=== PATIENT | female | born 1950 | race Caucasian/White ===

== ENCOUNTER → 2016-07-29 | Outpatient (CLI) | payer BC ==
--- NOTE | 2016-07-29 10:19 | MM ---
Reason for exam: history of breast cancer, conservation therapy. Last mammogram was performed 1 year ago. History: Patient is postmenopausal and has history of bilateral breast cancer at age 61. Malignant right breast needle localzation of both breasts, December 30, 2011. Malignant US RT VAD breast biopsy of the right breast, December 16, 2011. Malignant US RT VAD breast biopsy of the right breast, December 16, 2011. Benign core biopsy of the right breast, July 01, 1997. Cyst aspiration of the left breast. Cyst aspiration of the right breast. Excisional biopsy of the left breast. Taking antineoplastic for 4 years beginning at age 61. Physical Findings: Nurse did not find any significant physical abnormalities on exam. MG Diagnostic Mammo w CAD RAJENDRA Bilateral CC and MLO view(s) were taken. XCCL view(s) were taken of the right breast. Prior study comparison: July 29, 2015, bilateral MG 3d diag mammo w/cad RAJENDRA. July 23, 2014, bilateral MG diagnostic mammo w CAD RAJENDRA. July 17, 2013, CAD bilateral diagnostic mammogram. The breast tissue is heterogeneously dense. This may lower the sensitivity of mammography. Finding #1: Architectural distortion in the upper outer quadrant, posterior position of the right breast. Finding #2: There are typically benign round calcifications in both breasts. Previous mammotome biopsy in the right breast. There is no discrete abnormality. These results were verbally communicated with the patient and result sheet given to the patient on 07/29/16. ASSESSMENT: Benign, BI-RAD 2 RECOMMENDATION: Follow-up diagnostic mammogram of both breasts in 1 year.
== END | disposition home or self-care (01) ==
LOC: RADMAMWWP 09:30
PROVIDERS: ATTEND Radiology Diagnostic Radiology
DX: C50.911 Malignant neoplasm of unspecified site of right female breast (principal); Z79.899 Other long term (current) drug therapy

== ENCOUNTER → 2017-08-01 | Outpatient (CLI) | payer MEDICARE ==
--- NOTE | 2017-08-01 11:04 | MM ---
Reason for exam: additional evaluation requested from prior study. Last mammogram was performed 1 year ago. History: Patient is postmenopausal and has history of bilateral breast cancer at age 61. Malignant right breast needle localzation of both breasts, December 30, 2011. Malignant US RT VAD breast biopsy of the right breast, December 16, 2011. Malignant US RT VAD breast biopsy of the right breast, December 16, 2011. Benign core biopsy of the right breast, July 01, 1997. Cyst aspiration of the left breast. Cyst aspiration of the right breast. Excisional biopsy of the left breast. Taking antineoplastic for 4 years beginning at age 61. Physical Findings: Nurse did not find any significant physical abnormalities on exam. MG 3D Diag Mammo W/Cad RAJENDRA Bilateral CC and MLO view(s) were taken. Prior study comparison: July 29, 2016, bilateral MG diagnostic mammo w CAD RAJENDRA. July 29, 2015, bilateral MG 3d diag mammo w/cad RAJENDRA. The breast tissue is heterogeneously dense. This may lower the sensitivity of mammography. Finding: There are clips and architectural distortion in the upper outer quadrant, posterior position of the right breast consistent with known lumpectomy. Previous mammotome biopsy in the right breast. There is no discrete abnormality. These results were verbally communicated with the patient and result sheet given to the patient on 08/01/17. ASSESSMENT: Benign, BI-RAD 2 RECOMMENDATION: Follow-up diagnostic mammogram of both breasts in 1 year.
== END | disposition home or self-care (01) ==
LOC: RADMAMWWP 09:28
PROVIDERS: ATTEND Radiology Diagnostic Radiology
DX: C50.911 Malignant neoplasm of unspecified site of right female breast (principal)
CPT/HCPCS: 77066; G0279

== ENCOUNTER → 2018-01-20 | Outpatient (CLI) | payer MEDICARE ==
--- NOTE | 2018-01-20 14:47 | XR ---
EXAMINATION TYPE: XR knee complete LT DATE OF EXAM: 01/20/2018 COMPARISON: None HISTORY: Pain, knee injury, fall TECHNIQUE: Three-view left knee FINDINGS: Joint spaces are preserved. No joint effusion is evident. No acute fractures or dislocation s are evident. Patella appears intact. Follow-up exams can be performed 7-10 days continued pain. IMPRESSION: 1. Normal three-view left knee
== END | disposition home or self-care (01) ==
LOC: RADXRYALE 14:02
PROVIDERS: ATTEND Physician Assistant Medical
DX: M25.562 Pain in left knee (principal); R22.42 Localized swelling, mass and lump, left lower limb

== ENCOUNTER → 2018-08-02 | Outpatient (CLI) | payer MEDICARE ==
[2018-08-02 08:19] VITALS: BP 123/70; RESP 18; TEMP 98.1; BMI 23.5
[2018-08-02 08:35] VITALS: PULSE 55
--- NOTE | 2018-08-02 09:04 | P.HPOB ---
History of Present Illness H&P Date: 08/02/18 Chief Complaint: The patient is here for her routine gynecologic exam and ma mmogram. This is a 67-year-old with an LMP of 2003. The patient is without gynecologic complaints and denies any postmenopausal bleeding. Review of Systems She is getting about 6 pounds over the last 3 years. She denies respiratory or G.I. problems. Cardiac: occasional palpitations associated with anxiety. She is currently undergoing a workup for this and has an appointment with Dr. Haynes, the hot metal mixer operator helper. She denies maltreatment. She has fallen twice over the last year without significant injury. : she has occasional small leakage which is not a big problem for her. Past Medical History Past Medical History: Cancer, Hypertension, Thyroid Disorder Additional Past Medical History / Comment(s): MIGRAINE, Right CANCER BREAST status post lumpectomy and radiation in 2011. Migraine. Osteoporosis. 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 History of Any Multi-Drug Resistant Organisms: None Reported Past Surgical History: Breast Surgery, Tonsillectomy Additional Past Surgical History / Comment(s): PLATE RIGHT FEMUR, FACIAL RECONSTRUCTION. Breast lumpectomy. Breast biopsies. Left oophorectomy. Past Psychological History: No Psychological Hx Reported Smoking Status: Never smoker Past Alcohol Use History: None Reported Past Drug Use History: None Reported Additional History: She has been since 1973. She is retired. - Past Family History Mother Family Medical History: No Reported History Additional Family Medical History / Comment(s): Grandmother had some type of gynecologic cancer in her 80s and she believes it was uterine cancer. Medications and Allergies Home Medications Medication Instructions Recorded Confirmed Type Amitriptyline HCl [Elavil] 25 mg PO HS 10/10/13 10/10/13 History Clarithromycin [Biaxin] 250 mg PO Q12HR #10 tab 10/10/13 Rx Hydrocodone/Acetaminophen [Vicodin 1 tab PO Q6HR PRN 10/10/13 10/10/13 History 5-300 mg Tablet] Levothyroxine Sodium [Synthroid] 112 mcg PO DAILY 10/10/13 10/10/13 History Metoprolol Tartrate [Lopressor] 25 mg PO BID 10/10/13 10/10/13 History Tamoxifen [Nolvadex] 20 mg PO DAILY 10/10/13 10/10/13 History Allergies Allergy/AdvReac Type Severity Reaction Status Date / Time ampicillin Allergy Unknown Verified 10/10/13 13:43 ciprofloxacin [From Cipro] Allergy Unknown Verified 10/10/13 13:43 ciprofloxacin HCl Allergy Unknown Verified 10/10/13 13:43 [From Cipro] Iodinated Contrast- Oral and Allergy Unknown Verified 10/10/13 13:43 IV Dye [Iodinated Contrast Media - IV Dye] Sulfa (Sulfonamide Allergy Unknown Verified 10/10/13 13:43 Antibiotics) Exam Vital Signs Temp Pulse Resp BP Pulse Ox 08/02/18 08:20 98.1 F 55 L 18 123/70 99 08/02/18 08:17 98.1 F 18 123/70 Intake and Output 08/01/18 08/02/18 08/02/18 22:59 06:59 14:59 Other: Weight 68.039 kg Height 5'7", weight 150 pounds, BMI 24. This is a well-developed well-nourished white female who is alert and oriented times 3 in no acute distress. HEENT: Within normal limits. NECK: Supple without mass or thyromegaly. CHEST AND LUNGS: Clear to auscultation. HEART: Regular rate and rhythm. BREASTS: Are without mass or discharge. There are bilateral dimpled areas. There is a dimpled area in the right breast at approximately the 10 o'clock position and in the left breast at the 6 o'clock position. These are the areas of her previous lumpectomy and biopsy sites. AXILLARY EXAM: Negative for adenopathy. BACK: Negative for CVA tenderness. ABDOMEN: Soft, nontender, without palpable masses. PELVIC EXAM: Normal external genitalia with mild to moderate atrophy. Cervix and vagina appear normal with mild to moderate atrophy. There is no unusual discharge. There is no evidence of prolapse. The uterus is slightly retroverted, nongravid size and nontender. There is a palpable left adnexal mass adjacent to the uterus which is approximately 3 cm in size. There are no other palpable adnexal masses. The pelvis is nontender with bimanual examination. RECTAL EXAM: rectovaginal exam is negative for mass or tenderness and is negative for occult blood. I was unable to palpate the left adnexal mass with rectovaginal exam. EXTREMITIES: Nontender. IMPRESSION: 1. 67-year-old menopausal female with left pelvic adnexal mass. Differential diagnosis will include uterine fibroid, palpable ovary, ovarian neoplasm, or atypical retroverted uterus. 2. History of osteoporosis managed by her semiautomatic stitcher operator. 3. History of right breast cancer with no evidence of recurrence. PLAN: 1. Pap smear was performed. 2. Self breast awareness was discussed with the patient. 3. Diagnostic bilateral mammogram will be done today. 4. The patient will be scheduled for a pelvic ultrasound. The order slip was given to the patient for this. 5. I have recommended screening colonoscopy since she has never had this done. We also discussed Cologard testing if she does not want to do colonoscopy screening. She will further discuss your options with her primary caregiver. 6.Osteoporosis management was discussed. I have stressed the importance of adequate calcium, vitamin D and regular exercise. Recommended amounts of calcium and vitamin D were also discussed. I have also recommended that she reconsider medications for osteoporosis. We have discussed many of the pros and cons of the medications available. She states she will reconsider treatment and will further discuss this with her semiautomatic stitcher operator as she is done in the past. 7. She does not get flu shots in the fall. I have asked her to reconsider this. 8. She will return in one year.
--- NOTE | 2018-08-02 09:14 | MM ---
Reason for exam: additional evaluation requested from prior study. Last mammogram was performed 1 year ago. History: Patient is postmenopausal and has history of bilateral breast cancer at age 61. Malignant right breast needle localzation of both breasts, December 30, 2011. Malignant US RT VAD breast biopsy of the right breast, December 16, 2011. Malignant US RT VAD breast biopsy of the right breast, December 16, 2011. Benign core biopsy of the right breast, July 01, 1997. Cyst aspiration of the left breast. Cyst aspiration of the right breast. Excisional biopsy of the left breast. Taking antineoplastic for 4 years beginning at age 61. Physical Findings: Dr. Duong did breast exam. MG 3D Diag Mammo W/Cad RAJENDRA Bilateral CC and MLO view(s) were taken. Prior study comparison: August 01, 2017, bilateral MG 3d diag mammo w/cad RAJENDRA. July 29, 2016, bilateral MG diagnostic mammo w CAD RAJENDRA. The breast tissue is heterogeneously dense. This may lower the sensitivity of mammography. Previous mammotome biopsy in the right breast. Post surgical and post therapy changes in the right breast. No persisting abnormality on 3D images. No significant new findings when compared with previous films. These results were verbally communicated with the patient and result sheet given to the patient on 08/02/18. ASSESSMENT: Benign, BI-RAD 2 RECOMMENDATION: Follow-up diagnostic mammogram of both breasts in 1 year.
--- NOTE | 2018-08-02 11:09 | US ---
EXAMINATION TYPE: US pelvis complete transvag DATE OF EXAM: 08/02/2018 COMPARISON: None CLINICAL HISTORY: 67-year-old female R68.89 Abn Pelvic Exam/R19.09 L Pelvic Mass. Pt states possible left adnexal mass felt on Dr's examination, left ovary surgically absent TECHNIQUE: Transabdominal sonographic images of the pelvis were acquired. Transvaginal sonographic images were medically necessary to better assess the following anatomy: Uterus and ovaries Findings: EXAM MEASUREMENTS: Uterus: 6.9 x 3.8 x 4.1 cm Endometrial Stripe: 0.8 cm Right Ovary: 2.0 x 1.6 x 1.6 cm 1. Uterus: Retroverted with a cervical nabothian cyst within cervix 2. Endometrium: Heterogeneous intervertebral cystic change or fluid within the uterine cavity. Of th e endometrial stripe is borderline thickened for foreign asymptomatic postmenopausal female. 3. Right Ovary: wnl 4. Left Ovary: Surgically absent 5. Bilateral Adnexa: wnl, bowel peristalsis visualized bilaterally 6. Posterior cul-de-sac: wnl IMPRESSION: 1. Retroverted uterus. The endometrial stripe is borderline to mildly thickened at 8 mm (for a patien t without postmenopausal bleeding) and heterogeneous in appearance. There is either cystic change or small amount of fluid within the uterine cavity. Endometrial hyperplasia is possible. Careful clinica l correlation recommended. Follow-up as indicated as thickening can be seen with endometrial polyps a nd endometrial carcinoma as well. 2. Left ovary surgically absent. No evident adnexal mass or other abnormality by ultrasound.
== END ==
LOC: WWCWWP 07:49
PROVIDERS: ATTEND Obstetrics & Gynecology
DX: Z08 Encounter for follow-up examination after completed treatment for malignant neoplasm (principal); Z85.3 Personal history of malignant neoplasm of breast; R93.89 Abnormal findings on diagnostic imaging of other specified body structures
CPT/HCPCS: 77066; 76856; 76830; G0279; 77062

== ENCOUNTER → 2018-08-23 | Day surgery (SDC) | payer MEDICARE ==
[2018-08-23 12:18] VITALS: PULSE 54; RESP 20; TEMP 97.1; BMI 23.1
--- NOTE | 2018-08-23 13:12 | P.PCN ---
Date of Procedure: 08/23/18 Preoperative Diagnosis: Postmenopausal endometrial thickening. Postoperative Diagnosis: Same Procedure(s) Performed: Endometrial biopsy Anesthesia: none Surgeon: Rickey Duong Estimated Blood Loss (ml): 0 Pathology: other (Endometrial tissue) Condition: stable Disposition: same day Indications for Procedure: This is a 67-year-old menopausal female who had a pelvic ultrasound done which showed an endometrial thickness of 8 mm. This is considered thickened for a menopausal woman. She denies any postmenopausal bleeding. Operative Findings: The uterus is slightly retroverted. The cervix and vagina appear normal. The uterus sounded to 7 cm. Scant amount tissue is obtained with endometrial biopsy. Description of Procedure: The endometrial biopsy procedure was described to the patient. All of her questions were answered. The patient was placed in the lithotomy position. Bimanual examination was performed. The uterus is mid-positioned, slightly retroverted, and is nongravid size. The speculum was inserted and the cervix and vagina were prepped with 5% acetic acid solution(iodine allergy). In Allys Clamp was placed on the anterior lip of the cervix. The 3mm endometrial biopsy curette was placed to the fundus without difficulty. The uterus sounded to 7 cm. A [id number] rotating motion was used and a scant amount of tissue was obtained and sent for pathological examination. The procedure was repeated and again a scant amount of tissue was obtained. The patient tolerated the procedure well. There were no complications. The post procedure vitals are as follows: blood pressure 131/61. pulse 65. Post procedure instructions were given to the patient.
--- NOTE | 2018-08-29 09:14 | P.PN ---
Progress Note - Text Progress Note Date: 08/29/18 OUTPATIENT FOLLOW-UP NOTE TEST(S)/RESULTS: endometrial biopsy pathology from 08/23/2018 showed benign inactive endometrium. METHOD OF NOTIFICATION: the patient was notified by phone. PATIENT COMMENTS: the patient is happy to hear this results. She states she had no problems after the procedure. DIAGNOSIS: benign endometrial biopsy pathology done for thickened endometrium by ultrasound. DISCUSSION: the patient was instructed to call she has any postmenopausal vaginal bleeding. PLAN: She was advised to return in one year for her annual well woman exam.
== END ==
LOC: WWCWWP 11:57
PROVIDERS: ATTEND Obstetrics & Gynecology
DX: N85.8 Other specified noninflammatory disorders of uterus (principal); Z78.0 Asymptomatic menopausal state
CPT/HCPCS: 88305

== ENCOUNTER → 2020-08-19 | Outpatient (CLI) | payer MEDICARE ==
[2020-08-19 12:54] VITALS: BP 135/70; PULSE 68; RESP 16; TEMP 98.3
--- NOTE | 2020-08-19 13:41 | P.HPOB ---
History of Present Illness H&P Date: 08/19/20 Chief Complaint: The patient is here for her routine gynecologic exam and ma mmogram. This is a 69-year-old with an LMP of 2003. The patient is without gynecologic complaints and denies any postmenopausal bleeding. Review of Systems The patient has gained 4 pounds over the last year. She denies respiratory, cardiac, or G.I. problems. Past Medical History Past Medical History: Cancer, Hypertension, Thyroid Disorder Additional Past Medical History / Comment(s): Right CANCER BREAST status post lumpectomy and radiation in 2011. Migraine. Osteoporosis(treatment declined). 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 History of Any Multi-Drug Resistant Organisms: None Reported Past Surgical History: Breast Surgery, Tonsillectomy Additional Past Surgical History / Comment(s): PLATE RIGHT FEMUR, FACIAL RECONSTRUCTION. Breast lumpectomy. Breast biopsies. Left oophorectomy. Past Psychological History: No Psychological Hx Reported Smoking Status: Former smoker Past Alcohol Use History: None Reported Past Drug Use History: None Reported Additional History: She has been since 1973 and is not sexually active. She is retired. - Past Family History Mother Family Medical History: No Reported History Additional Family Medical History / Comment(s): Grandmother had some type of gynecologic cancer in her 80s and she believes it was uterine cancer. Medications and Allergies Home Medications Medication Instructions Recorded Confirmed Type Levothyroxine Sodium [Synthroid] 112 mcg PO DAILY 10/10/13 08/19/20 History Metoprolol Tartrate [Lopressor] 25 mg PO BID 10/10/13 08/19/20 History Amitriptyline HCl 25 mg PO HS 08/19/20 08/19/20 History Azelastine/Fluticasone 1 spray EA NOSTRIL DAILY 08/19/20 08/19/20 History [Azelastin-Flutic 137-50Mcg Spr] Cholecalciferol (Vitamin D3) 4,000 unit PO DAILY 08/19/20 08/19/20 History [Vitamin D3 (4,000 Iu)] Prochlorperazine [Compro] 25 mg RECTAL DAILY PRN 08/19/20 08/19/20 History Allergies Allergy/AdvReac Type Severity Reaction Status Date / Time ampicillin Allergy Unknown Verified 08/19/20 12:56 ciprofloxacin [From Cipro] Allergy Unknown Verified 08/19/20 12:56 ciprofloxacin HCl Allergy Unknown Verified 08/19/20 12:56 [From Cipro] Iodinated Contrast Media Allergy Unknown Verified 08/19/20 12:56 [Iodinated Contrast Media - IV Dye] Sulfa (Sulfonamide Allergy Unknown Verified 08/19/20 12:56 Antibiotics) amoxicillin AdvReac Rash/Hives Unverified 08/19/20 12:56 cephalexin [From Keflex] AdvReac Rash/Hives Unverified 08/19/20 12:56 Exam Vital Signs Temp Pulse Resp BP Pulse Ox 08/19/20 12:49 98.3 F 68 16 135/70 100 Intake and Output 08/18/20 08/19/20 08/19/20 22:59 06:59 14:59 Other: Weight 69.853 kg Height 5 feet 6 inches, weight 154 pounds, BMI 24.9. This is a well-developed well-nourished white female who is alert and oriented times 3 in no acute distress. HEENT: Within normal limits. NECK: Supple without mass or thyromegaly. CHEST AND LUNGS: Clear to auscultation. HEART: Regular rate and rhythm. BREASTS: Are without mass or discharge. AXILLARY EXAM: Negative for adenopathy. BACK: Negative for CVA tenderness. ABDOMEN: Soft, nontender, without palpable masses. PELVIC EXAM: Normal external genitalia with mild to moderate atrophy. Cervix and vagina appear normal mild to moderate atrophy. There is no unusual discharge. There is no evidence of prolapse. The uterus is midposition, nongravid size and nontender. There is a palpable mass posterior to the uterus which is slightly irregular in shape and measures approximate 4 cm. This is nontender. There are no other palpable masses or tenderness. RECTAL EXAM: Rectovaginal exam is negative for mass within the rectum. The mass palpable on vaginal bimanual examination is felt superior to the rectum and there is no significant stool within the rectum. The rectal exam is nontender. EXTREMITIES: Nontender. IMPRESSION: 1. 69-year-old menopausal female with palpable 4 cm mass posterior to the uterus. Differential diagnosis will include colonic stool, ovarian mass, or non-gynecologic pelvic mass. 2. History of osteoporosis. 3. History of right breast cancer with no evidence of recurrence on exam today. PLAN: 1. Pap smears have been discontinued. 2. Self breast awareness was discussed with the patient. 3. Mammogram will be done today. 4. Pelvic ultrasound was recommended because of the palpable pelvic mass posterior to the uterus. The order slip was given to the patient for this. I have recommended that she try to empty her colon and rectal contents the best she can and she can use an [id number] stool softener/laxative such as Senokot prior to her pelvic ultrasound. 5. She was advised to return in one year for her annual well woman exam.
== END ==
LOC: WWCWWP 12:29
PROVIDERS: ATTEND Obstetrics & Gynecology
DX: Z01.419 Encounter for gynecological examination (general) (routine) without abnormal findings (principal); N85.8 Other specified noninflammatory disorders of uterus; I10 Essential (primary) hypertension; Z85.3 Personal history of malignant neoplasm of breast; Z87.891 Personal history of nicotine dependence; Z98.890 Other specified postprocedural states
CPT/HCPCS: 77066

== ENCOUNTER → 2020-08-25 | Outpatient (CLI) | payer MEDICARE ==
--- NOTE | 2020-08-25 16:14 | US ---
EXAMINATION TYPE: US transvaginal DATE OF EXAM: 08/25/2020 COMPARISON: NONE CLINICAL HISTORY: 69-year-old female R19.09 Pelvic Mass, R68.89. TECHNIQUE: Transvaginal (TV). Date of LMP: post menopausal patient FINDINGS: EXAM MEASUREMENTS: Uterus: 6.9 x 2.9 x 3.8 cm Endometrial Stripe: 0.6 cm Right Ovary: Obscured by overlying bowel gas/atrophy Left Ovary: Obscured by overlying bowel gas/atrophy Service Crew Leader notes: Physician palpated posterior pelvic mass on pelvic exam. 1. Uterus: Anteverted 2. Endometrium: Borderline to mildly thickened and heterogeneous for postmenopausal patient 3. Right Ovary: Obscured by overlying bowel gas/atrophy 4. Left Ovary: Obscured by overlying bowel gas/atrophy 5. Bilateral Adnexa: wnl 6. Posterior cul-de-sac: extensive peristalsing bowel IMPRESSION: 1. The endometrial stripe is heterogeneous and borderline to mildly thickened at 6 mm for a postmenop ausal female. This could reflect endometrial hyperplasia. Underlying polyps or endometrial carcinoma are additional differential considerations. Either short interval follow-up ultrasound or further cheryl luation as clinically indicated. 2. Unable to visualize either ovary.
--- NOTE | 2020-08-26 10:39 | P.PN ---
Progress Note - Text Progress Note Date: 08/26/20 OUTPATIENT FOLLOW-UP NOTE TEST(S)/RESULTS: Pelvic ultrasound done on 08/25/2020 showed no evidence of pelvic mass. The endometrial stripe was felt to be borderline measuring 6 mm. METHOD OF NOTIFICATION: The patient was notified by phone. PATIENT COMMENTS: She denies any postmenopausal bleeding. DIAGNOSIS: Borderline endometrial thickness measuring 6 mm with no evidence of pelvic mass by pelvic ultrasound. DISCUSSION: I have reviewed the patient's notes and she did have a pelvic ultrasound in 2019 also for possible pelvic mass by routine exam. Again there was no evidence of pelvic mass, but endometrial thickness was felt to be increased measuring 8 mm at that time. Endometrial biopsy was performed and was benign. PLAN: Given the initial thickness being less than what it was in 2019 and endometrial biopsy at that time was benign, I do feel her risk for endometrial hyperplasia or greater is very small and with no postmenopausal bleeding, I do not feel any further testing needs to be done at this time. She was instructed to call if she has any postmenopausal vaginal bleeding or problems. She was advised to return in one year for her annual well woman exam.
== END | disposition home or self-care (01) ==
LOC: RADUSWWP 14:53
PROVIDERS: ATTEND Obstetrics & Gynecology
DX: R93.89 Abnormal findings on diagnostic imaging of other specified body structures (principal); Z78.0 Asymptomatic menopausal state
CPT/HCPCS: 76830

== ENCOUNTER → 2020-09-10 | Outpatient (CLI) | payer MEDICARE ==
--- NOTE | 2020-09-11 07:11 | BD ---
EXAMINATION TYPE: Axial Bone Density DATE OF EXAM: 09/10/2020 COMPARISON: NONE CLINICAL HISTORY: Postmenopausal female Height: 66.5 Weight: 154.8 FRAX RISK QUESTIONS: Alcohol (3 or more units per day): NO Family History (Parent hip fracture): YES Glucocorticoids (More than 3mos): no (Ex: prednisone, prednisolone, methylprednisolone, dexamethasone, and hydrocortisone). History of Fracture in Adulthood: yes Secondary Osteoporosis: 1. Type 1 Diabetes: no 2. Hyperthyroidism: no 3. Menopause before 45: no 4. Malnutrition: no 5. Chronic liver disease: no Rheumatoid Arthritis: no Current Tobacco Use: no RISK FACTORS HISTORY OF: Surgery to Spine/Hip(right/left)/Wrist (right/left): no Family History of Osteoporosis: yes Active: yes Diet low in dairy products/other sources of calcium: yes Postmenopausal woman: age 51 Lost more than 2 inches in height since high school: no MEDICATIONS: levothyroxine-30 + years amatripolene, d3, Metroprolol Additional History: EXAM MEASUREMENTS: Bone mineral densitometry was performed using the [employer] System. Bone mineral density as measured about the Lumbar spine is: ----- L1-L4(G/cm2): 0.915 T Score Values are as follows: ----- L2: -2.9 ----- L3: -2.1 ----- L4: -1.8 ----- L1-L4: -2.2 Bone mineral density : baseline Bone mineral density about the R hip (g/cm2): 0.622 Bone mineral density about the L hip (g/cm2): 0.715 T Score values are as follows: -----R Neck: -3.0 -----L Neck: -2.3 -----R Total: -3.4 -----L Total: -3.2 Bone mineral density : baseline IMPRESSION: Osteoporosis (T Score less than -2.5). There is increased fracture risk and therapy is usually indicated based on age. Re-Screen 1-2 years. NOTE: T-SCORE=SD OF THE YOUNG ADULT MEAN.
== END | disposition home or self-care (01) ==
LOC: RADBDWWP 15:26
PROVIDERS: ATTEND Family Medicine
DX: M81.0 Age-related osteoporosis without current pathological fracture (principal); M85.89 Other specified disorders of bone density and structure, multiple sites; Z78.0 Asymptomatic menopausal state
CPT/HCPCS: 77080

== ENCOUNTER → 2022-01-04 | Outpatient (CLI) | payer MEDICARE ==
--- NOTE | 2022-01-04 11:32 | MM ---
Reason for Exam: Clinical finding. Last mammogram was performed 1 year(s) and 4 month(s) ago. Patient History: Menarche at age 12. First Full-Term at age 26. Left ovary removed at age 44. Postmenopausal. Breast cancer, right, age 61. Cyst Aspiration on the Right side. Cyst Aspiration on the Left side. Excisional Biopsy on the Left side. 12/30/2011, Bilateral Malignant Excisional Biopsy. 12/16/2011, Malignant Core Biopsy on the right side. 12/16/2011, Malignant Core Biopsy on the right side. 07/01/1997, Benign Core Biopsy on the right side. Prior Study Comparison: 06/19/1997 Bilateral Special View Mammogram, [facility]. 06/19/1997 Right Diagnostic Ultrasound, [facility]. 11/20/1997 Right Diagnostic Ultrasound, [facility]. 03/07/1999 Bilateral Diagnostic Mammogram, [facility]. 06/16/2000 Bilateral Diagnostic Mammogram, [facility]. 06/24/2000 Left Screening Mammogram, [facility]. 12/21/2000 Left Special View Mammogram, [facility]. 06/21/2001 Bilateral Special View Mammogram, [facility]. 02/16/2005 Bilateral Screening Mammogram, [facility]. 02/23/2005 Bilateral Diagnostic Mammogram, [facility]. 02/23/2005 Right Diagnostic Ultrasound, [facility]. 08/24/2005 Right Diagnostic Mammogram, [facility]. 08/24/2005 Right Diagnostic Ultrasound, [facility]. 06/21/2006 Bilateral Screening Mammogram, [facility]. 04/09/2009 Bilateral Screening Mammogram, [facility]. 11/18/2010 Bilateral Screening Mammogram, [facility]. 11/25/2010 Left Diagnostic Mammogram, [facility]. 07/13/2011 Left Diagnostic Mammogram, [facility]. 12/07/2011 Bilateral Diagnostic Mammogram, [facility]. 12/07/2011 Right Diagnostic Ultrasound, [facility]. 12/16/2011 Right Diagnostic Mammogram, [facility]. 07/17/2012 Bilateral Diagnostic Mammogram, [facility]. 07/17/2013 Bilateral Diagnostic Mammogram, [facility]. 07/23/2014 Bilateral Diagnostic Mammogram, [facility]. 07/29/2015 Bilateral Diagnostic Mammogram, [facility]. 07/29/2016 Bilateral Diagnostic Mammogram, [facility]. 08/01/2017 Bilateral Diagnostic Mammogram, [facility]. 08/02/2018 Bilateral Diagnostic Mammogram, [facility]. 08/19/2020 Bilateral Diagnostic Mammogram, [facility]. Tissue Density: The breast tissue is heterogeneously dense. This may lower the sensitivity of mammography. Findings: Analyzed By CAD. No suspicious masses or distortions. Benign appearing consultations. Right-sided surgical clips and biopsy clip. Overall Assessment: Benign, BI-RAD 2 Management: Screening Mammogram of both breasts in 1 year. A clinical breast exam by your physician is recommended on an annual basis and results should be correlated with mammographic findings. This exam should not preclude additional follow-up of suspicious palpable abnormalities. Results were given to the patient verbally at the time of exam. Electronically signed and approved by: Jason Johnson DO
== END | disposition home or self-care (01) ==
LOC: RADMAMWWP 10:55
PROVIDERS: ATTEND Family Medicine
DX: N63.10 Unspecified lump in the right breast, unspecified quadrant (principal); Z85.3 Personal history of malignant neoplasm of breast
CPT/HCPCS: 77066; G0279; 77062

== ENCOUNTER → 2023-05-17 | Outpatient (CLI) | payer MEDICARE ==
--- NOTE | 2023-05-17 14:43 | MM ---
Reason for Exam: Hx of breast cancer, conservation therapy. Last mammogram was performed 1 year(s) and 5 month(s) ago. Patient History: Menarche at age 12. First Full-Term at age 26. Left ovary removed at age 44. Postmenopausal. Breast cancer, right, age 61. Cyst Aspiration on the Right side. Cyst Aspiration on the Left side. Excisional Biopsy on the Left side. 12/30/2011, Bilateral Malignant Excisional Biopsy. 12/16/2011, Malignant Core Biopsy on the right side. 12/16/2011, Malignant Core Biopsy on the right side. 07/01/1997, Benign Core Biopsy on the right side. Prior Study Comparison: 07/29/2016 Bilateral Diagnostic Mammogram, [facility]. 08/01/2017 Bilateral Diagnostic Mammogram, [facility]. 08/02/2018 Bilateral Diagnostic Mammogram, [facility]. 08/19/2020 Bilateral Diagnostic Mammogram, [facility]. 01/04/2022 Bilateral MG 3D diag mammo w/cad RAJENDRA, [facility]. Tissue Density: The breast tissue is heterogeneously dense. This may lower the sensitivity of mammography. Analyzed By CAD. Overall Assessment: Benign, BI-RAD 2 Management: Screening Mammogram of both breasts in 1 year. Electronically signed and approved by: Christiano Perez D.O. Radiologis
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
== END | disposition home or self-care (01) ==
LOC: RADMAMWWP 13:40
PROVIDERS: ATTEND Family Medicine
DX: R92.333 Mammographic heterogeneous density, bilateral breasts (principal); N63.10 Unspecified lump in the right breast, unspecified quadrant; M85.88 Other specified disorders of bone density and structure, other site; M81.0 Age-related osteoporosis without current pathological fracture; Z85.3 Personal history of malignant neoplasm of breast; Z78.0 Asymptomatic menopausal state
CPT/HCPCS: 77080; 77066; G0279; 77062

== ENCOUNTER → 2024-08-20 | Outpatient (CLI) | payer MEDICARE ==
--- NOTE | 2024-08-20 15:07 | XR ---
EXAMINATION TYPE: XR lumbosacral spine min 4V DATE OF EXAM: 08/20/2024 2:57 PM INDICATION: Patient age:Female; 73 years old; Reason for study: [id number] LUMBAGO,LT HIP PAIN,OSTEO; [facility]. pain COMPARISON: None TECHNIQUE: Frontal, lateral , bilateral oblique and coned in L5-S1 lateral views of the spine. FINDINGS: There are 5 lumbar type vertebral bodies identified. No evidence of any acute osseous patho logy. No evidence of loss of vertebral body height is seen. There is normal alignment of the lumbar vertebral bodies. Multilevel disc space narrowing with endplate sclerosis. I described calcification of the aorta. IMPRESSION: 1. No acute process. 2. Mild multilevel degenerative disc disease of the lumbar spine. [facility], , 08/20/2024 3:05 PM
--- NOTE | 2024-08-20 15:09 | XR ---
EXAMINATION TYPE: XR Hip Complete LT DATE OF EXAM: 08/20/2024 2:57 PM INDICATION: Patient age:Female; 73 years old; Reason for study: [id number] LUMBAGO,LT HIP PAIN,OSTEO; [facility]. pain COMPARISON: None. TECHNIQUE: The left hip was examined in the frontal and lateral projections. FINDINGS: No evidence of any acute osseous pathology, joint dislocation, or soft tissue swelling. Mil d medial joint space narrowing of the left hip without acetabular sclerosis or marginal osteophytosis . Degenerative changes of the pubic symphysis. IMPRESSION: 1. No acute osseous pathology. 2. Minimal osteoarthritic changes of the left hip. [facility], , 08/20/2024 3:06 PM
== END | disposition home or self-care (01) ==
LOC: RADXRYALE 13:57
PROVIDERS: ATTEND Physician Assistant Medical
DX: M81.8 Other osteoporosis without current pathological fracture (principal); M51.360 Other intervertebral disc degeneration, lumbar region with discogenic back pain only; M54.42 Lumbago with sciatica, left side; M16.12 Unilateral primary osteoarthritis, left hip
CPT/HCPCS: 72110; 73502